=== PATIENT | male | born 1960 | race African-American/Black ===

== ENCOUNTER 2016-10-16 12:24 | Inpatient (IN) | payer MEDICARE, OTHER ==
--- NOTE | ~2016-10-16 | DS ---
Discharge Summary [facility] [address] [place]. [address] NAME: LUPIS MOSCOSO : 56 STATUS : DIS IN PAT#: [id number] AGE: 56 ADM/REG DATE : 10/16/16 MR#: [id number] REPORT SERV DATE: 10/26/16 DICTATED BY: ROBIN MURRY DATE: 10/25/16 REPORT STATUS : Draft TRANSCRIBED BY: MODL DATE: 10/25/16 ADMISSION DATE: 10/16/2016 DISCHARGE DATE: 10/25/2016 INDICATION FOR ADMISSION: Nonhealing right first metatarsal head wound. DISCHARGE DIAGNOSES: 1. Ischemic diabetic ulcer, right foot with ulceration and osteomyelitis, involving the distal first metatarsal bone by MRI. 2. Status post amputation of right great toe and one-half of metatarsal bone with debridement of wound. 3. End-stage renal disease, dialyzing Friday, Friday, Friday by left upper extremity AV fistula at [facility]. 4. Hypertension. 5. Type 2 diabetes mellitus. 6. Previous deep vein thrombosis. 7. History of proteinuria. 8. Coronary artery disease status post PCI. 9. Anemia. 10.Osteoarthritis. 11.Obstructive sleep apnea. 12.Hyperparathyroidism. HOSPITAL COURSE: Mr. Moscoso is a 56-year-old male, who dialyzes at [facility] by left upper extremity fistula on Friday, Friday, and Friday. He developed problems with nonhealing ulcer on the right foot and underwent MRI and was found to have osteomyelitis of the first metatarsal head. He had recently seen Dr. Sanabria for revascularization attempt for lower extremity. The patient had foul drainage from the wound, was febrile with episodes of nausea and vomiting three to four days prior to admission. He had been receiving IV antibiotics outpatient on dialysis and was admitted for further evaluation. Dr. Wilburn assessed the patient in consultation and felt that operative intervention would be in the best interest of the patient. He performed the amputation of the right great toe with removal of one-half of the metatarsal on 10/22/2016. Postoperatively, the patient remained on antibiotics, including gentamicin and vancomycin for wound cultures growing E coli, enterococci, methicillin-resistant Staph and Staph coag- negative bacteria. The patient was stable postoperatively, afebrile. When Surgery felt stable for discharge, he was released. Discharge followup will be on dialysis Friday, Friday, Friday at [facility]. He will receive antibiotics, gentamicin 60 mg IV q. dialysis x2 weeks and vancomycin 1 g IV q. dialysis x2 weeks with levels above gentamicin and vancomycin followed on each Friday. He will follow up in Wound Care as scheduled by Dr. Wilburn. He will follow up with Dr. Wilburn as scheduled. DIET: 2000-calorie ADA renal diet with 1500 mL per day fluid restriction. ACTIVITY: Per Surgery. Discharge Summary [facility] [id number] [place]. [address] NAME: LUPIS MOSCOSO : 56 STATUS : DIS IN PAT#: [id number] AGE: 56 ADM/REG DATE : 10/16/16 MR#: [id number] REPORT SERV DATE: 10/26/16 DICTATED BY: ROBIN MURRY DATE: 10/25/16 REPORT STATUS : Draft TRANSCRIBED BY: SOLO DATE: 10/25/16 DISCHARGE MEDICATIONS: Humalog insulin sliding scale; Nitrostat 0.4 mg sublingual p.r.n. chest pain; tramadol 50 mg p.o. b.i.d. p.r.n. x10 days; hydrocodone 5/325 one q.6h. p.r.n.; Phenergan 12.5 mg p.o. q.6h. p.r.n.; Cipro 500 mg p.o. daily x10 days; vancomycin 1 g IV q. HD x2 weeks; vancomycin level q. Friday; gentamicin 60 mg IV q. dialysis x2 weeks, level q. Friday; Bumex 2 mg Friday, Friday, , Friday; Coreg 12.5 mg twice daily on nondialysis days; Flexeril 10 mg q.h.s.; Cardizem 240 mg p.o. daily; B complex with C one tablet p.o. daily; sodium bicarbonate 650 mg daily; folic acid 1 mg daily; Plavix 75 mg p.o. daily; Lantus insulin 30 units subcutaneously at bedtime; Prilosec 20 mg p.o. daily p.r.n.; aspirin 81 mg p.o. daily; Claritin 10 mg p.o. daily p.r.n.; Catapres 0.1 mg p.o. q.6 h. p.r.n. systolic blood pressure greater than 200 mmHg. DISPOSITION: Greater than 35 minutes. MATTHEW/SOLO Robin Murry M.D. / [id number] CC: Mary Ivey M.D.
--- NOTE | ~2016-10-16 | HP ---
History And Physical [facility] [address] [place]. [address] NAME: LUPIS MOSCOSO : 56 STATUS : ADM IN [facility]#: [id number] AGE: 56 ADM/REG DATE : 10/16/16 MR#: [id number] REPORT SERV DATE: 10/17/16 DICTATED BY: REI HORNER DATE: 10/16/16 REPORT STATUS : Draft TRANSCRIBED BY: MODL DATE: 10/16/16 DATE OF ADMISSION: 10/16/2016 REASON FOR ADMISSION: End-stage renal disease, nonhealing right first metatarsal head wound. HISTORY OF PRESENT ILLNESS: This is a fairly pleasant 56-year-old male patient, who dialyzes at [facility] facility via left upper extremity fistula on Friday, Friday, Friday schedule. Recently, he has recent difficulty with a nonhealing right first metatarsal head wound and has recently seen Dr. Moreau for revascularization attempt. The patient continued to have difficulty with drainage in that wound with a foul smell and febrile, nausea, and vomiting episodes over the last three to four days. He has been receiving IV antibiotics at dialysis recently and requested to be evaluated here from Surgical Services for further intervention and recommendations. Dr. Wilburn has agreed to see the patient, has assessed him this afternoon. Initial imaging would suggest that there was soft tissue gas in the region of the infection surrounding the great toe with no definitive film evidence of osteomyelitis. Plans going forward currently with Dr. Wilburn's recommendations include further imaging of that area and possible surgical intervention dependent on the outcome of said imaging. The patient has maintained his usual hemodialysis schedule and is sitting at bedside this afternoon with his present during evaluation. He denies current chest pain. No nausea, vomiting, or diarrhea. He complains of frequent difficulty with elevated temperatures, chills, and some evidence of rigors. PAST MEDICAL HISTORY: Positive for end-stage renal disease Friday, Friday, Friday via left upper extremity access at [facility]. History also positive for hypertension, diabetes, previous DVT, proteinuria, coronary artery disease, PCI, anemia, osteoarthritis, obstructive sleep apnea, and reflux secondary to hyperparathyroidism. History is also positive for nonhealing right first metatarsal head wound as delineated in HPI. REVIEW OF SYSTEMS: Is completed. Please see HPI for pertinent details. SOCIAL HISTORY: No ETOH. No illicit drugs. No tobacco. FAMILY HISTORY: Noncontributory and not reviewed during this consultation and admission. CURRENT ACTIVE MEDICATIONS AND ALLERGIES: Are as follows. He lists allergies to nonsteroidal medications as well as lisinopril and vancomycin. Active medications include ASA 81 mg daily; Tammy-Renetta one tablet p.o. daily; Bumex 2 mg Friday, , Friday on nondialysis days; Coreg 12.5 mg p.o. b.i.d. on nondialysis days; Catapres 0.1 mg p.o. q.6 hours for systolics greater than 200; Flexeril 10 mg p.o. q.h.s.; Cardizem 240 mg p.o. daily; folic acid 1 mg p.o. daily; [place] one tab 5/325 p.o. q.6 hours p.r.n.; Lantus 30 units subcu q.h.s.; Humalog sliding scale; Claritin 10 mg p.o. daily p.r.n.; Nitrostat 0.4 sublingual p.r.n. for chest pain; Prilosec 20 mg daily p.r.n.; Phenergan 12.5 mg daily p.r.n.; sodium bicarbonate 650 mg p.o. daily. History And Physical [address] [address] NAME: LUPIS MOSCOSO : 56 STATUS : ADM IN [facility]#: [id number] AGE: 56 ADM/REG DATE : 10/16/16 MR#: [id number] REPORT SERV DATE: 10/17/16 DICTATED BY: REI HORNER DATE: 10/16/16 REPORT STATUS : Draft TRANSCRIBED BY: SOLO DATE: 10/16/16 PHYSICAL EXAMINATION: VITAL SIGNS: Blood pressure 140/80, temperature 100.1, 97 heart rate, respiratory rate is 16, he is 98% on 2 L. GENERAL: He is awake, alert, and oriented sitting at bedside on his stretcher during evaluation. His is present during evaluation. HEENT: Normocephalic and atraumatic. Normal ocular movements. No scleral icterus. No conjunctival pallor is appreciated. NECK: Supple. No thyromegaly. No JVD or mass. CHEST: Shows positive S1 and S2. No rubs or gallops. LUNGS: Diminished. Clear to auscultation throughout. Normal expansion effort bilaterally. GI: Shows positive bowel sounds in all four quadrants. No appreciable mass or tenderness. : Deferred. EXTREMITIES: Show positive pulses to his upper extremities bilaterally with left upper extremity radiocephalic fistula. Left lower extremity is amputated below the knee. Right lower extremity has no palpable dorsal pulses and he has an open draining wound to his first metatarsal head on his right foot with noted foul odor. NEUROLOGIC: He appears to be grossly intact. Nonfocal. SKIN: Warm, dry, and intact. Visualized surfaces without rash, lesions, or ecchymosis with the exception of wound noted on his right lower extremity first metatarsal head. LABORATORY DATA: Pertinent laboratories and imaging to this admission and evaluation are as follows. X-ray of the foot shows soft tissue gas in the region of infection surrounding the great toe with no definitive evidence of osteomyelitis. Portable chest x-ray shows no acute process, negative A and B flu screening. WBC at 11.2, RBC 3.84, hemoglobin 9.3, hematocrit 29.9, platelets 279. Comprehensive metabolic panel, sodium 137, potassium 3.9, chloride 100, CO2 of 25, BUN 28, creatinine 5.96, glucose 163, calcium 9.0, total protein 8.5, albumin 2.8, globulin 5.7, alkaline phos 95, ALT and AST 16 and 14, lipase at 85, lactate level at 1.8. IMPRESSION AND PLAN: End-stage renal disease; Friday, Friday, Friday; [facility]; left upper extremity fistula; recent difficulty with first metatarsal head wound on his right foot with previous left [id number] amputation. Evaluation has been undertaken by Dr. Wilburn's service today. Recommendations are for broad-spectrum antibiotic coverage, which we will undertake. The patient cannot have vancomycin due to itching reported with vancomycin dosing. We will make substitution for that. We will also provide coverage with Zosyn and place the patient on strict I's and O's, daily weights, protect his left upper extremity fistula. Home medications will be provided. Culture of the wound has already been undertaken by Dr. Wilburn. He will also undertake MRI for further definition of possible need for surgical intervention to the foot. According to our conversation this afternoon, he suspects that he may require further surgical intervention based of current assessment. Continue his usual Friday, Friday, Friday hemodialysis pattern. Sliding scale insulin. Protect his left upper extremity fistula. Check procalcitonin. Blood cultures x2 if those have not been collected and follow the patient closely. Consider consultation with Infectious Disease if clinically warranted. We appreciate input and assistance from Surgical Services with Dr. Wilburn. Further modification of treatment plan may be made based of clinical presentation, the patient's laboratory results, and further consultation with Renal attending. History And Physical [address] [address] NAME: LUPIS MOSCOSO : 56 STATUS : ADM IN [facility]#: [id number] AGE: 56 ADM/REG DATE : 10/16/16 MR#: [id number] REPORT SERV DATE: 10/17/16 DICTATED BY: REI HORNER DATE: 10/16/16 REPORT STATUS : Draft TRANSCRIBED BY: SOLO DATE: 10/16/16 DICTATED BY: Jimbo Knight NP JR/SOLO Rei Horner M.D. / [id number] CC: Mary Ivey M.D.
--- NOTE | ~2016-10-16 | CN ---
Consultation Report [facility] [address] [place]. [address] NAME: LUPIS MOSCOSO : 56 STATUS : ADM IN PAT#: [id number] AGE: 56 ADM/REG DATE : 10/16/16 MR#: [id number] REPORT SERV DATE: 10/16/16 DICTATED BY: JORGE WILBURN III DATE: 10/16/16 REPORT STATUS : Draft TRANSCRIBED BY: SOLO DATE: 10/16/16 WOUND HEALING SURGICAL CONSULT. DATE OF CONSULTATION: 10/16/2016 The patient is a 56-year-old Afro-Y[place]i male, diabetic and questionable control on hemodialysis with a two-week history of foul smell from his right medial foot, but couple of months of an ulceration. An angioplasty was reportedly good flow by Dr. Sanabria yesterday, has been treated by silver products in Dr. Sanabria's clinic according to the patient. He was last seen in the wound healing center in 2011. His presentation was with fever, chills, and foul smell from his right foot. He gives a history of 30 pounds weight loss on a diet trying to qualify for transplant potential. 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 The patient walks with a prosthesis. REVIEW OF SYSTEMS: Consistent with weight loss issue, but no history of any C difficile colitis or other reactions, although he does say he has itching with the administration of vancomycin. PHYSICAL EXAMINATION: GENERAL: The patient is a well developed, well nourished, Afro-Yemeni male, somewhat flattened affect. HEENT: Nonlateralizing. NECK: Supple. CHEST: Clear. ABDOMEN: Soft. EXTREMITIES: Left lower extremity shows a well-healed BKA. His right lower extremity shows an ulceration on the medial aspect of the right foot that is 3.5 x 3.6 x 0.7 cm foul smelling with deep tissue with much slough and early necrosis with some undermining circumferentially. This is at the level of the first metatarsophalangeal joint. Pulses were present, but quite weak. IMPRESSION: He has diabetic ischemic ulcer with infection, probable osteo in the right foot status post angio yesterday. Recommended an MRI, culture sensitivity, which have been done. Antibiotics for broad spectrum coverage and the debridement versus amputation in the future depending on the patient's MRI findings at potential for salvage. RB/SOLO Jorge Wilburn III, M.D. Consultation Report [address] [address] NAME: LUPIS MOSCOSO : 56 STATUS : ADM IN PAT#: [id number] AGE: 56 ADM/REG DATE : 10/16/16 MR#: [id number] REPORT SERV DATE: 10/16/16 DICTATED BY: JORGE WILBURN III DATE: 10/16/16 REPORT STATUS : Draft TRANSCRIBED BY: SOLO DATE: 10/16/16 / [id number] CC: Mary Ivey M.D.
--- NOTE | ~2016-10-16 | OP ---
Record Of Operation [facility] [address] [place]. [address] NAME: LUPIS MOSCOSO : 56 STATUS : ADM IN PAT#: [id number] AGE: 56 ADM/REG DATE : 10/16/16 MR#: [id number] REPORT SERV DATE: 10/23/16 DICTATED BY: JORGE WILBURN III DATE: 10/22/16 REPORT STATUS : Draft TRANSCRIBED BY: MODL DATE: 10/22/16 DATE OF PROCEDURE: 10/22/2016 PREOPERATIVE DIAGNOSIS: Ischemic and diabetic ulcer of the right foot medial aspect with a large ulceration and osteomyelitis involving the distal first metatarsal bone per MRI evaluation. POSTOPERATIVE DIAGNOSIS: Ischemic and diabetic ulcer of the right foot medial aspect with a large ulceration and osteomyelitis involving the distal first metatarsal bone per MRI evaluation. PROCEDURE IN DETAIL: Excision of the medial metatarsophalangeal level ulcer en bloc with right foot great toe amputation and en bloc excision of the distal metatarsal bone with injection of platelet-rich plasma and complex closure with culture and sensitivity of the base of dissection at the cut edge of the first metatarsal bone about mid level. ANESTHESIA: General with endotracheal tube and an A-line that was utilized for the 60 mL withdrawn for platelet-rich plasma processing. The operative loss was about 20 mL. PLASTICS SPREADING MACHINE OPERATOR: Denise Wilburn. ANESTHESIA: General with endotracheal tube. PROCEDURE IN DETAIL: The patient was prepped and draped in routine fashion. Adequate general anesthetic near the right foot prepped in the operative field and marking pen used to delineate an ellipsing medial incision about mid foot all the way to the medial aspect of the web space between the first and second toes. Bovie cautery was utilized to dissect the tissues down into the plantar space and the metatarsal bone identified and periosteum stripped away with periosteal elevator. The tendonaceous attachments were removed with the cautery and sharp dissection excising most of the large tendons that were present. The joint itself was freed up medially and the periosteal level of the first metatarsal bone identified about mid shaft and an oscillating saw used to divide the bone which was compact and without evidence of obvious infection in the transected portion. The specimen was then submitted en bloc for pathologic evaluation. Moderate bleeding was encountered that was controlled with cautery and gentle pressure and Surgicel used in the bone marrow area for hemostasis. Cultures were taken from the base of the dissection plane at the level of the metatarsal bone, and this was submitted for anaerobic, aerobic, fungus, and AFB evaluation. The closure was then begun in several layers using 0 undyed Vicryl sutures to approximate the suture. The deep plantar spaces with some Surgicel placed in the area and injection of platelet-rich plasma in the space. After sutures had been placed deep, they were tied down and an another layer performed using 0 Vicryl to approximate the fascia. The subcutaneous tissue was closed with interrupted 2-0 Vicryl and skin closed with interrupted alternating simple and horizontal mattress of 0 Prolene sutures. Wound was then dressed with Xeroform gauze and bulky dressing and a postop shoe applied. The patient tolerated the procedure well and will be continued on antibiotics for soft-tissue coverage for two weeks and plan outpatient hyperbaric oxygen evaluation and therapy. Record Of Operation [facility] [id number] [facility] [place]. [address] NAME: LUPIS MOSCOSO : 56 STATUS : ADM IN PAT#: [id number] AGE: 56 ADM/REG DATE : 10/16/16 MR#: [id number] REPORT SERV DATE: 10/23/16 DICTATED BY: JORGE WILBURN III DATE: 10/22/16 REPORT STATUS : Draft TRANSCRIBED BY: SOLO DATE: 10/22/16 The preoperative evaluation by Dr. Glenn Sanabria as well as a TCOM had showed very marginal blood supply to the area; therefore, HBO therapy will be strongly urged. RB/SOLO Jorge Wilburn III, M.D. / [id number] CC: Mary Ivey M.D. [facility]
[2016-10-16 12:16] LABS: BASOPHILS 0.1 %; BASOPHILS ABSOLUTE 0.01 10/3/uL (0.0-0.16); EOSINOPHILS 0.5 %; EOSINOPHILS ABSOLUTE 0.06 10/3/uL (0.0-0.53); HEMATOCRIT 29.9 % (40.0-51.0); HEMOGLOBIN 9.3 g/dL (13.6-17.8); IMMATURE GRANULOCYTES 0.2 %; IMMATURE GRANULOCYTES ABSOLUTE 0.02 10/3/uL (0.0-0.11); LYMPHOCYTES 5.6 %; LYMPHOCYTES ABSOLUTE 0.63 10/3/uL (0.67-4.30); MEAN CORPUS HGB CONC 31.1 g/dL (32.0-36.0); MEAN CORPUSCULAR HEMOGLOB 24.2 pg (26.0-34.0); MEAN CORPUSCULAR VOLUME 77.9 fL (80-100); MEAN PLATELET VOLUME 10.2 fL (9.2-13.0); MONOCYTES 11.2 %; MONOCYTES ABSOLUTE 1.25 10/3/uL (0.21-1.20); NEUTROPHILS 82.4 %; NEUTROPHILS ABSOLUTE 9.24 10/3/uL (2.02-8.40); PLATELET COUNT 279 10/3/uL (150-400); RBC DISTRIBUTION WIDTH 13.9 % (12.0-16.0); RED CELL COUNT 3.84 10/6/uL (4.7-6.1)
[2016-10-16 12:17] LABS: ER CBC TAT 0 Hrs 14 Min; MANUAL DIFF NO %; WHITE BLOOD CELLS 11.2 10/3/uL (4.5-10.5)
[2016-10-16 12:22] LABS: INTERNATIONAL NORMAL RATI 1.2 UNITS (-); PARTIAL THROMBO TIME 31.7 SEC (22.5-37.2)
[~2016-10-16 12:24] MED LIST: AMIT50 PO; AMITRIPTYLIN150 MG PO; AMITRIPTYLINE PO; AMOXIL; APRES25 PO; ASAB PO; AUG250 PO; BEN25 PO; BLOOD PRESSURE TAB PO; BUM2 PO; BUMEX PO; CARDCD240 PO; CAT2 PO; CATAPRES3 TOP; CEFT5 PO; CLARIT10 PO; COREG12 PO; COREG25 PO; DEMA100 PO; DIALYVITE800 MG PO; DILT-XR240 MG PO; DILTIAZEM PO; ELAVIL PO; EXFORGE1 TA1 PO; EXFORGE1 TA3 PO; FISH-EPA1000 MG PO; FLEX PO; FLEXERIL5 MG PO; FOLIC ACID OTC PO; FOLIC PO; HUMALOG SC; IRON PO; L20 PO; LANTUS FOR SC; LANTUS SC; LANTUSCART SC; LISINOPRIL PO; LISINOPRIL40 MG PO; LORTAB 5 PO; MULTIVIT/MIN PO; NITROSTAT0.4 MG PO; NITROSTAT0.4 MG SL; NORCO1 TA1 PO; NORV10 PO; NOVOPEN SC; OTC NASAL SPRAY NAS; PEPTO BISMOL LIQ1 ML PO; PLAVIX PO; PR12.5 PO; PR25 PO; PRILO PO; PRIN10 PO; PRIN20 PO; PROTONIX PO; RENA-VITE PO; RX NASAL SPRAY NAS; SINGULAIR1 PO; SODBICAR10 PO; SODIUM BICARB; TUMSROLL PO; VITAMIN D1000 UNI1 PO; ZANTAC 150 PO; ZANTAC150 MG PO; ZOFRAN4 PO; [UNRECOGNIZED DRUG - REMARK]; [UNRECOGNIZED DRUG - REMARK]; [UNRECOGNIZED DRUG - REMARK] PO
[2016-10-16 12:31] LABS: LACTATE 1.8 MMOL/L (0.3-2.4)
[2016-10-16 12:33] LABS: A/G RATIO 0.5 (0.7-1.9); ALBUMIN 2.8 G/DL (3.5-5.0); ALKALINE PHOSPHATASE 95 U/L (45-117); CHLORIDE, SERUM 100 MMOL/L (96-112); CO2 (CARBON DIOXIDE) 25 MMOL/L (24-34); GLOBULIN 5.7 G/DL (2.5-4.1); POTASSIUM, SERUM 3.9 MMOL/L (3.5-5.3); SGOT(AST) 14 U/L (5-40); SGPT(ALT) 16 U/L (5-65); SODIUM, SERUM 137 MMOL/L (135-148); TOTAL BILIRUBIN 0.5 MG/DL (0-1.2); TOTAL PROTEIN 8.5 G/DL (6.0-8.5)
[2016-10-16 12:34] LABS: BUN (BLOOD UREA NITROGEN) 28 MG/DL (6-23); CREATININE 5.96 MG/DL (0.70-1.30); GFR AFRICAN AMERICAN 11 ML/MIN (>=60); GFR NON AFRICAN AMERICAN 10 ML/MIN (>=60); GLUCOSE, SERUM 163 MG/DL (60-99)
[2016-10-16 12:37] LABS: PROTIME (NOT ORD) 14.9 SEC (12.0-14.5)
[2016-10-16 13:08] LABS: INFLUENZA A SCREEN NEGATIVE (NEGATIVE); INFLUENZA B SCREEN NEGATIVE (NEGATIVE)
[2016-10-16] MEDS ORDERED: PRILO PO (14:20)
[2016-10-16] MEDS ORDERED: BUM2 PO (14:21)
[2016-10-16] MEDS ORDERED: ASAB PO (14:21)
[2016-10-16] MEDS ORDERED: CLARIT10 PO (14:22)
[2016-10-16] MEDS ORDERED: CAT1 PO (14:23)
[2016-10-16] MEDS ORDERED: CARDCD240 PO (14:24)
[2016-10-16] MEDS ORDERED: COREG12 PO (14:24)
[2016-10-16] MEDS ORDERED: FOLIC PO (14:24)
[2016-10-16] MEDS ORDERED: FLEX PO (14:24)
[2016-10-16] MEDS ORDERED: LANTUSCART SC (14:25)
[2016-10-16] MEDS ORDERED: NORCO1 TA1 PO (14:25)
[2016-10-16] MEDS ORDERED: HUMALOG SC (14:25)
[2016-10-16] MEDS ORDERED: NITROSTAT0.4 MG SL (14:25)
[2016-10-16] MEDS ORDERED: RENA-VITE PO (14:26)
[2016-10-16] MEDS ORDERED: PR12.5 PO (14:26)
[2016-10-16] MEDS ORDERED: SODBICAR10 PO (14:26)
[2016-10-17 06:25] LABS: BASOPHILS 0.1 %; BASOPHILS ABSOLUTE 0.01 10/3/uL (0.0-0.16); EOSINOPHILS 0.4 %; EOSINOPHILS ABSOLUTE 0.03 10/3/uL (0.0-0.53); HEMATOCRIT 27.6 % (40.0-51.0); HEMOGLOBIN 8.5 g/dL (13.6-17.8); IMMATURE GRANULOCYTES 0.4 %; IMMATURE GRANULOCYTES ABSOLUTE 0.03 10/3/uL (0.0-0.11); LYMPHOCYTES 8.7 %; LYMPHOCYTES ABSOLUTE 0.62 10/3/uL (0.67-4.30); MEAN CORPUS HGB CONC 30.8 g/dL (32.0-36.0); MEAN CORPUSCULAR HEMOGLOB 24.6 pg (26.0-34.0); MONOCYTES 4.6 %; MONOCYTES ABSOLUTE 0.33 10/3/uL (0.21-1.20); NEUTROPHILS 85.8 %; NEUTROPHILS ABSOLUTE 6.14 10/3/uL (2.02-8.40); PLATELET COUNT 267 10/3/uL (150-400); RED CELL COUNT 3.45 10/6/uL (4.7-6.1); WHITE BLOOD CELLS 7.2 10/3/uL (4.5-10.5)
[2016-10-17 06:39] LABS: MANUAL DIFF NO %
[2016-10-17 06:40] LABS: ALBUMIN 2.5 G/DL (3.5-5.0); CALCIUM, SERUM 9.7 MG/DL (8.5-10.4); CHLORIDE, SERUM 98 MMOL/L (96-112); CO2 (CARBON DIOXIDE) 26 MMOL/L (24-34); GFR AFRICAN AMERICAN 8 ML/MIN (>=60); GFR NON AFRICAN AMERICAN 7 ML/MIN (>=60); GLUCOSE, SERUM 156 MG/DL (60-99); PHOSPHORUS, SERUM 4.9 MG/DL (2.5-4.5); POTASSIUM, SERUM 3.7 MMOL/L (3.5-5.3); SODIUM, SERUM 136 MMOL/L (135-148)
[2016-10-17 06:42] LABS: BUN (BLOOD UREA NITROGEN) 35 MG/DL (6-23); CREATININE 7.52 MG/DL (0.70-1.30)
[2016-10-17] MEDS ORDERED: PLAVIX PO (12:42)
[2016-10-18 06:53] LABS: PREALBUMIN 11.7 MG/DL (17.0-43.0)
[2016-10-18 12:15] LABS: BASOPHILS 0.2 %; BASOPHILS ABSOLUTE 0.01 10/3/uL (0.0-0.16); EOSINOPHILS 3.5 %; EOSINOPHILS ABSOLUTE 0.19 10/3/uL (0.0-0.53); HEMATOCRIT 25.4 % (40.0-51.0); HEMOGLOBIN 8.1 g/dL (13.6-17.8); IMMATURE GRANULOCYTES 0.4 %; IMMATURE GRANULOCYTES ABSOLUTE 0.02 10/3/uL (0.0-0.11); LYMPHOCYTES 12.6 %; LYMPHOCYTES ABSOLUTE 0.69 10/3/uL (0.67-4.30); MEAN CORPUS HGB CONC 31.9 g/dL (32.0-36.0); MEAN CORPUSCULAR HEMOGLOB 24.9 pg (26.0-34.0); MEAN CORPUSCULAR VOLUME 78.2 fL (80-100); MEAN PLATELET VOLUME 9.8 fL (9.2-13.0); MONOCYTES 18.8 %; MONOCYTES ABSOLUTE 1.03 10/3/uL (0.21-1.20); NEUTROPHILS 64.5 %; NEUTROPHILS ABSOLUTE 3.53 10/3/uL (2.02-8.40); PLATELET COUNT 258 10/3/uL (150-400); RBC DISTRIBUTION WIDTH 13.6 % (12.0-16.0); RED CELL COUNT 3.25 10/6/uL (4.7-6.1); WHITE BLOOD CELLS 5.5 10/3/uL (4.5-10.5)
[2016-10-18 12:17] LABS: MANUAL DIFF NO %
[2016-10-18 12:28] LABS: ALBUMIN 2.2 G/DL (3.5-5.0); CHLORIDE, SERUM 96 MMOL/L (96-112); CO2 (CARBON DIOXIDE) 26 MMOL/L (24-34); GLUCOSE, SERUM 171 MG/DL (60-99); PHOSPHORUS, SERUM 5.8 MG/DL (2.5-4.5); POTASSIUM, SERUM 3.7 MMOL/L (3.5-5.3); SODIUM, SERUM 133 MMOL/L (135-148)
[2016-10-18 12:33] LABS: BUN (BLOOD UREA NITROGEN) 48 MG/DL (6-23); CALCIUM, SERUM 8.4 MG/DL (8.5-10.4); GFR AFRICAN AMERICAN 7 ML/MIN (>=60); GFR NON AFRICAN AMERICAN 6 ML/MIN (>=60)
[2016-10-19 07:21] LABS: CPK (IF ELEVATED MB BANDS) 61 U/L (0-200); TROPONIN I <0.02 NG/ML (<0.05)
[2016-10-21 09:18] LABS: BASOPHILS 0.3 %; BASOPHILS ABSOLUTE 0.02 10/3/uL (0.0-0.16); EOSINOPHILS 2.6 %; EOSINOPHILS ABSOLUTE 0.18 10/3/uL (0.0-0.53); HEMATOCRIT 25.8 % (40.0-51.0); IMMATURE GRANULOCYTES 0.4 %; IMMATURE GRANULOCYTES ABSOLUTE 0.03 10/3/uL (0.0-0.11); LYMPHOCYTES 24.5 %; MANUAL DIFF NO %; MEAN CORPUSCULAR VOLUME 77.5 fL (80-100); MEAN PLATELET VOLUME 10.3 fL (9.2-13.0); MONOCYTES 7.9 %; MONOCYTES ABSOLUTE 0.55 10/3/uL (0.21-1.20); NEUTROPHILS 64.3 %; NEUTROPHILS ABSOLUTE 4.46 10/3/uL (2.02-8.40); PLATELET COUNT 332 10/3/uL (150-400); RBC DISTRIBUTION WIDTH 13.6 % (12.0-16.0); RED CELL COUNT 3.33 10/6/uL (4.7-6.1); WHITE BLOOD CELLS 6.9 10/3/uL (4.5-10.5)
[2016-10-21 09:29] LABS: ALBUMIN 2.2 G/DL (3.5-5.0); CALCIUM, SERUM 8.5 MG/DL (8.5-10.4); CHLORIDE, SERUM 102 MMOL/L (96-112); CO2 (CARBON DIOXIDE) 24 MMOL/L (24-34); GFR AFRICAN AMERICAN 8 ML/MIN (>=60); GFR NON AFRICAN AMERICAN 7 ML/MIN (>=60); GLUCOSE, SERUM 159 MG/DL (60-99); PHOSPHORUS, SERUM 5.8 MG/DL (2.5-4.5); POTASSIUM, SERUM 3.6 MMOL/L (3.5-5.3); SODIUM, SERUM 137 MMOL/L (135-148)
[2016-10-21 09:30] LABS: BUN (BLOOD UREA NITROGEN) 57 MG/DL (6-23); CREATININE 8.11 MG/DL (0.70-1.30)
[2016-10-22 06:01] LABS: BASOPHILS 0.5 %; BASOPHILS ABSOLUTE 0.03 10/3/uL (0.0-0.16); EOSINOPHILS 2.6 %; EOSINOPHILS ABSOLUTE 0.17 10/3/uL (0.0-0.53); HEMATOCRIT 28.5 % (40.0-51.0); HEMOGLOBIN 8.6 g/dL (13.6-17.8); IMMATURE GRANULOCYTES 1.4 %; IMMATURE GRANULOCYTES ABSOLUTE 0.09 10/3/uL (0.0-0.11); LYMPHOCYTES 23.3 %; LYMPHOCYTES ABSOLUTE 1.54 10/3/uL (0.67-4.30); MANUAL DIFF NO %; MEAN CORPUS HGB CONC 30.2 g/dL (32.0-36.0); MEAN CORPUSCULAR VOLUME 79.4 fL (80-100); MEAN PLATELET VOLUME 9.8 fL (9.2-13.0); MONOCYTES 7.7 %; MONOCYTES ABSOLUTE 0.51 10/3/uL (0.21-1.20); NEUTROPHILS 64.5 %; NEUTROPHILS ABSOLUTE 4.26 10/3/uL (2.02-8.40); PLATELET COUNT 351 10/3/uL (150-400); RBC DISTRIBUTION WIDTH 13.5 % (12.0-16.0); RED CELL COUNT 3.59 10/6/uL (4.7-6.1); WHITE BLOOD CELLS 6.6 10/3/uL (4.5-10.5)
[2016-10-22 06:16] LABS: ALBUMIN 2.3 G/DL (3.5-5.0); CALCIUM, SERUM 8.6 MG/DL (8.5-10.4); CHLORIDE, SERUM 103 MMOL/L (96-112); CO2 (CARBON DIOXIDE) 25 MMOL/L (24-34); POTASSIUM, SERUM 3.9 MMOL/L (3.5-5.3); SODIUM, SERUM 139 MMOL/L (135-148)
[2016-10-22 06:18] LABS: BUN (BLOOD UREA NITROGEN) 39 MG/DL (6-23); CREATININE 6.79 MG/DL (0.70-1.30); GFR AFRICAN AMERICAN 9 ML/MIN (>=60); GFR NON AFRICAN AMERICAN 8 ML/MIN (>=60); GLUCOSE, SERUM 213 MG/DL (60-99)
[2016-10-23 08:05] LABS: BASOPHILS 0.3 %; BASOPHILS ABSOLUTE 0.02 10/3/uL (0.0-0.16); EOSINOPHILS 2.3 %; EOSINOPHILS ABSOLUTE 0.18 10/3/uL (0.0-0.53); HEMATOCRIT 26.4 % (40.0-51.0); HEMOGLOBIN 8.1 g/dL (13.6-17.8); IMMATURE GRANULOCYTES 0.5 %; IMMATURE GRANULOCYTES ABSOLUTE 0.04 10/3/uL (0.0-0.11); LYMPHOCYTES 16.5 %; LYMPHOCYTES ABSOLUTE 1.32 10/3/uL (0.67-4.30); MEAN CORPUS HGB CONC 30.7 g/dL (32.0-36.0); MEAN CORPUSCULAR HEMOGLOB 24.1 pg (26.0-34.0); MEAN CORPUSCULAR VOLUME 78.6 fL (80-100); MEAN PLATELET VOLUME 9.5 fL (9.2-13.0); MONOCYTES 7.5 %; NEUTROPHILS 72.9 %; NEUTROPHILS ABSOLUTE 5.82 10/3/uL (2.02-8.40); PLATELET COUNT 355 10/3/uL (150-400); RBC DISTRIBUTION WIDTH 13.7 % (12.0-16.0); RED CELL COUNT 3.36 10/6/uL (4.7-6.1)
[2016-10-23 08:06] LABS: MANUAL DIFF NO %
[2016-10-23 08:36] LABS: CALCIUM, SERUM 8.8 MG/DL (8.5-10.4); CHLORIDE, SERUM 102 MMOL/L (96-112); CO2 (CARBON DIOXIDE) 24 MMOL/L (24-34); POTASSIUM, SERUM 3.8 MMOL/L (3.5-5.3); SODIUM, SERUM 137 MMOL/L (135-148)
[2016-10-23 08:37] LABS: BUN (BLOOD UREA NITROGEN) 44 MG/DL (6-23); CREATININE 7.56 MG/DL (0.70-1.30); GFR AFRICAN AMERICAN 8 ML/MIN (>=60); GFR NON AFRICAN AMERICAN 7 ML/MIN (>=60); GLUCOSE, SERUM 161 MG/DL (60-99)
[2016-10-23 11:26] LABS: ALBUMIN 2.4 G/DL (3.5-5.0); PHOSPHORUS, SERUM 5.6 MG/DL (2.5-4.5)
[2016-10-24 06:38] LABS: BASOPHILS 0.1 %; BASOPHILS ABSOLUTE 0.01 10/3/uL (0.0-0.16); EOSINOPHILS 2.2 %; EOSINOPHILS ABSOLUTE 0.18 10/3/uL (0.0-0.53); HEMATOCRIT 28.7 % (40.0-51.0); HEMOGLOBIN 8.8 g/dL (13.6-17.8); IMMATURE GRANULOCYTES 0.5 %; IMMATURE GRANULOCYTES ABSOLUTE 0.04 10/3/uL (0.0-0.11); LYMPHOCYTES 18.5 %; LYMPHOCYTES ABSOLUTE 1.51 10/3/uL (0.67-4.30); MEAN CORPUS HGB CONC 30.7 g/dL (32.0-36.0); MEAN CORPUSCULAR HEMOGLOB 24.2 pg (26.0-34.0); MEAN CORPUSCULAR VOLUME 79.1 fL (80-100); MEAN PLATELET VOLUME 9.9 fL (9.2-13.0); MONOCYTES 8.6 %; NEUTROPHILS 70.1 %; NEUTROPHILS ABSOLUTE 5.74 10/3/uL (2.02-8.40); PLATELET COUNT 371 10/3/uL (150-400); RBC DISTRIBUTION WIDTH 13.8 % (12.0-16.0); RED CELL COUNT 3.63 10/6/uL (4.7-6.1); WHITE BLOOD CELLS 8.2 10/3/uL (4.5-10.5)
[2016-10-24 06:39] LABS: MANUAL DIFF NO %
[2016-10-24 06:51] LABS: ALBUMIN 2.4 G/DL (3.5-5.0); CHLORIDE, SERUM 102 MMOL/L (96-112); CO2 (CARBON DIOXIDE) 24 MMOL/L (24-34); GFR AFRICAN AMERICAN 10 ML/MIN (>=60); GFR NON AFRICAN AMERICAN 8 ML/MIN (>=60); GLUCOSE, SERUM 155 MG/DL (60-99); POTASSIUM, SERUM 3.8 MMOL/L (3.5-5.3); SODIUM, SERUM 138 MMOL/L (135-148)
[2016-10-24 06:52] LABS: BUN (BLOOD UREA NITROGEN) 33 MG/DL (6-23)
[2016-10-25 09:03] LABS: BASOPHILS 0.2 %; BASOPHILS ABSOLUTE 0.02 10/3/uL (0.0-0.16); EOSINOPHILS ABSOLUTE 0.17 10/3/uL (0.0-0.53); IMMATURE GRANULOCYTES 0.2 %; IMMATURE GRANULOCYTES ABSOLUTE 0.02 10/3/uL (0.0-0.11); LYMPHOCYTES 16.3 %; LYMPHOCYTES ABSOLUTE 1.37 10/3/uL (0.67-4.30); MEAN CORPUS HGB CONC 30.8 g/dL (32.0-36.0); MEAN CORPUSCULAR HEMOGLOB 24.2 pg (26.0-34.0); MEAN CORPUSCULAR VOLUME 78.5 fL (80-100); MEAN PLATELET VOLUME 9.7 fL (9.2-13.0); MONOCYTES 8.9 %; MONOCYTES ABSOLUTE 0.75 10/3/uL (0.21-1.20); NEUTROPHILS 72.4 %; NEUTROPHILS ABSOLUTE 6.09 10/3/uL (2.02-8.40); PLATELET COUNT 396 10/3/uL (150-400); RED CELL COUNT 3.31 10/6/uL (4.7-6.1); WHITE BLOOD CELLS 8.4 10/3/uL (4.5-10.5)
[2016-10-25 09:04] LABS: MANUAL DIFF NO %
[2016-10-25 09:21] LABS: ALBUMIN 2.2 G/DL (3.5-5.0); BUN (BLOOD UREA NITROGEN) 43 MG/DL (6-23); CALCIUM, SERUM 8.5 MG/DL (8.5-10.4); CHLORIDE, SERUM 101 MMOL/L (96-112); CO2 (CARBON DIOXIDE) 25 MMOL/L (24-34); CREATININE 8.46 MG/DL (0.70-1.30); GFR AFRICAN AMERICAN 7 ML/MIN (>=60); GFR NON AFRICAN AMERICAN 6 ML/MIN (>=60); GLUCOSE, SERUM 96 MG/DL (60-99); PHOSPHORUS, SERUM 5.4 MG/DL (2.5-4.5); POTASSIUM, SERUM 3.6 MMOL/L (3.5-5.3); SODIUM, SERUM 137 MMOL/L (135-148)
[2016-10-25] MEDS ORDERED: ULTRAM50 PO (16:29)
[2016-10-25] MEDS ORDERED: CIP5 PO (16:30)
[2016-10-25] MEDS ORDERED: VANCOMYCIN (16:31)
[2016-10-25] MEDS ORDERED: IVGENTA IV (16:32)
[2016-10-25] MEDS ORDERED: VANCO1P IV ×2 (16:33→16:34)
[2016-10-25] MEDS ORDERED: BACTROINT TOP (16:36)
== END 2016-10-25 17:48 | disposition home or self-care (01) | DRG 853 ==
LOC: ER 12:24 → 6NO 16:40
PROVIDERS: Emergency Medicine; Hospitalist; Internal Medicine Nephrology; Registered Nurse; Surgery
PROC: 04CP3ZZ Extirpation of Matter from Right Anterior Tibial Artery, Percutaneous Approach (ICD-10-PCS; 2016-10-16)
PROC: 047P3ZZ Dilation of Right Anterior Tibial Artery, Percutaneous Approach (ICD-10-PCS; 2016-10-16)
PROC: 5A1D60Z (ICD-10-PCS; 2016-10-16)
PROC: B41D1ZZ Fluoroscopy of Aorta and Bilateral Lower Extremity Arteries using Low Osmolar Contrast (ICD-10-PCS; 2016-10-16)
PROC: 3E013GC Introduction of Other Therapeutic Substance into Subcutaneous Tissue, Percutaneous Approach (ICD-10-PCS; 2016-10-22)
PROC: 0Y6P0Z0 Detachment at Right 1st Toe, Complete, Open Approach (ICD-10-PCS; principal; 2016-10-22 09:45)
DX: A41.9 Sepsis, unspecified organism (principal); N18.6 End stage renal disease; E11.52 Type 2 diabetes mellitus with diabetic peripheral angiopathy with gangrene; E46 Unspecified protein-calorie malnutrition; I12.0 Hypertensive chronic kidney disease with stage 5 chronic kidney disease or end stage renal disease; M86.9 Osteomyelitis, unspecified; L97.419 Non-pressure chronic ulcer of right heel and midfoot with unspecified severity; E11.22 Type 2 diabetes mellitus with diabetic chronic kidney disease; E11.69 Type 2 diabetes mellitus with other specified complication; E11.621 Type 2 diabetes mellitus with foot ulcer; I77.1 Stricture of artery; I25.10 Atherosclerotic heart disease of native coronary artery without angina pectoris; D64.9 Anemia, unspecified; M19.90 Unspecified osteoarthritis, unspecified site; E21.3 Hyperparathyroidism, unspecified; Z86.718 Personal history of other venous thrombosis and embolism; Z79.82 Long term (current) use of aspirin; Z95.5 Presence of coronary angioplasty implant and graft; Z79.4 Long term (current) use of insulin; Z89.512 Acquired absence of left leg below knee; Z99.2 Dependence on renal dialysis
CPT/HCPCS: 36415; 37229; 71010; 73620-RT; 73718-RT; 75625; 75710; 75774; 76937; 80048; 80053; 80069; 80202; 82330; 82550; 82962; 83036; 83605; 83690; 83735; 84134; 84145; 84484; 85014; 85018; 85025; 85610; 85730; 86850; 86900; 86901; 86920; 87015; 87040; 87070; 87075; 87077; 87102; 87116; 87186; 87205; 87804; 88307; 93005; 93923; 96374; 97161-GP; 99285; A9270-GY; C1725; C1769; C1894; G0257; G8978-CL-GP; G8979-CK-GP; J0360; J0690; J0885; J1170; J2250; J2370; J2405; J2543; J2550; J2710; J3010; J3370; Q9966